=== PATIENT | male | born 1960 | race Caucasian/White ===

== ENCOUNTER → 2018-10-05 | Outpatient (CLI) | payer BC ==
--- NOTE | 2018-10-05 09:27 | CT ---
EXAMINATION TYPE: CT sinus wo con DATE OF EXAM: 10/05/2018 COMPARISON: None HISTORY: Chronic sinusitis CT DLP: [id number] mGycm. Automated Exposure Control for Dose Reduction was Utilized. TECHNIQUE: CT scan of the sinuses is performed without contrast, axial images are obtained, coronal r eformatted images are also reviewed. FINDINGS: There is mucosal thickening involving the maxillary sinuses and ethmoid air cells. Hypoplas tic frontal sinus. Oropharynx and nasopharynx are symmetric. Intraorbital structures and intracranial structures are sym metric. IMPRESSION: 1. Changes of chronic sinusitis.
== END ==
LOC: RADCTMAIN 08:05
PROVIDERS: ATTEND Otolaryngology
DX: J32.9 Chronic sinusitis, unspecified (principal)
CPT/HCPCS: 70486